=== PATIENT | male | born 1985 | race Hispanic/Latino ===

== ENCOUNTER 2016-08-31 02:56 | Emergency (ER) | payer OTHER ==
[2016-08-31 03:40] VITALS: BP 141/97; PULSE 60; RESP 18; TEMP 98.6; O2SAT 99
--- NOTE | 2016-08-31 03:55 | ED PDOC ---
Lower Extremity Pain/Injury Time Seen by Provider: 08/31/16 03:38 Chief Complaint (Nursing): Abnormal Skin Integrity Chief Complaint (Provider): skin irritation History Per: Patient History/Exam Limitations: no limitations Onset/Duration Of Symptoms: Days (1) Current Symptoms Are (Timing): Still Present Additional History Per: Patient Additional Complaint(s): 31 y/o male presents for eval of right leg pain x 1 day. Patient states he slid on [place] and sustained skin irritation to outer aspect of right lower leg last night. Patient states he cleaned area and applied bactine and went to bed. Patient states he woke up from bed with "throbbing" to area, so he took two motrin and came to ED. Patient concerned because [place] and wants to make sure he takes care of it the right way. Denies knee pain, swelling to area, limitation of movement, numbness/weakness right lower extemity. Past Medical History Reviewed: Historical Data, Nursing Documentation, Vital Signs Vital Signs: Last Vital Signs Temp 98.6 F 08/31/16 03:32 Pulse 60 08/31/16 03:32 Resp 18 08/31/16 03:32 BP 141/97 H 08/31/16 03:32 Pulse Ox 99 08/31/16 03:32 - Medical History PMH: No Chronic Diseases - Surgical History Surgical History: No Surg Hx - Family History Family History: States: Unknown Family Hx - Living Arrangements Living Arrangements: Alone - Home Medications Home Medications: Ambulatory Orders Medication Instructions Recorded Bacitracin Ointment [Bacitracin] 1 applic TOP DAILY #1 tube 08/31/16 Ibuprofen [Motrin Tab] 800 mg PO Q8 PRN #15 tab 08/31/16 - Allergies Allergies/Adverse Reactions: Allergies Allergy/AdvReac Type Severity Reaction Status Date / Time No Known Allergies Allergy Verified 08/31/16 03:32 Review of Systems ROS Statement: Except As Marked, All Systems Reviewed And Found Negative Musculoskeletal: Positive for: Leg Pain (right leg skin irritation) Physical Exam - Reviewed Nursing Documentation Reviewed: Yes Vital Signs Reviewed: Yes - Physical Exam Appears: Positive for: Well, Non-toxic, No Acute Distress Head Exam: Positive for: ATRAUMATIC, NORMAL INSPECTION, NORMOCEPHALIC Pulses-Dorsalis Pedis (L): 2+ Pulses-Dorsalis Pedis (R): 2+ Pulses-Post. Tibialis (L): 2+ Extremity: Positive for: Normal ROM, Other (8x4cm area of skin abrasion/burn to right lower lateral leg. No active bleeding, drainage, surorunding erythema or edema noted. Tender to touch. FROM right lower extremity. Distal NV/motor intact). Negative for: Pedal Edema Neurologic/Psych: Positive for: Alert, Oriented. Negative for: Motor/Sensory Deficits - ECG O2 Sat by Pulse Oximetry: 99 - Progress ED Course And Treament: Area cleaned with normal saline, bacitracin applied, bandage applied. Tylenol PO ordered Patient educated on wound care, discharged with rx ibuprofen, bacitracin. Follow up PMD 2-3 days. Return to ED for worsening/concerning symptoms. Disposition - Clinical Impression Clinical Impression: Leg abrasion - Patient ED Disposition Is Patient to be Admitted: No Counseled Patient/Family Regarding: Diagnosis, Need For Followup, Rx Given - Disposition Referrals: Gideon Nguyen MD [Primary Care Provider] - Disposition: Routine/Home Disposition Time: 03:57 Condition: GOOD Prescriptions: Bacitracin Ointment [Bacitracin] 1 applic TOP DAILY #1 tube Ibuprofen [Motrin Tab] 800 mg PO Q8 PRN #15 tab PRN Reason: Pain, Moderate (4-7) Instructions: Abrasion (ED)
== END 2016-08-31 04:14 | disposition home or self-care (01) ==
LOC: H.ER 02:56
DX: S80.811A Abrasion, right lower leg, initial encounter (principal); X58.XXXA Exposure to other specified factors, initial encounter; Y93.9 Activity, unspecified